=== PATIENT | female | born 1975 | race Caucasian/White ===

== ENCOUNTER 2023-10-29 12:02 | Emergency (ER) | payer OTHER, SELFPAY ==
[2023-10-29 12:04] VITALS: BP 126/75
[2023-10-29 12:34] VITALS: BMI 42.8
[2023-10-29 12:51] LABS: % Basophils 0.5 % (0-2); % Immature Granulocytes 0.4 % (0-0.5); % Lymphocytes 22.7 % (20.5-51.1); % Monocytes 4.4 % (1.7-9.3); Absolute Eosinophils 0.1 10^3/uL (0-0.7); Absolute Lymphocytes 1.9 10^3/uL (1.2-3.4); Absolute Monocytes 0.4 10^3/uL (0.1-0.6); Absolute Neutrophils 5.8 10^3/uL (1.4-6.5); Hematocrit 35.9 % (37.0-47.0); Hemoglobin 12.5 g/dL (12.0-16.0); Mean Corp Hgb Conc. 34.8 g/dL (33.0-37.0); Mean Corpuscular Hgb 30.4 pg (27.0-31.0); Mean Corpuscular Volume 87.3 fL (81.0-99.0); Mean Platelet Volume 9.3 fL (7.4-10.4); Nucleated Red Blood Cells % 0 %; Platelet Count 217 10^3/uL (130-400); Red Blood Cell Count 4.11 10^6/uL (4.20-5.40); Red Cell Dist. Width 12.2 % (11.5-14.5); White Blood Cell Count 8.2 10^3/uL (4.8-10.8)
[2023-10-29 13:09] LABS: ALT (SGPT) 101 U/L (0-35); AST (SGOT) 305 U/L (14-36); Albumin 4.1 g/dl (3.5-5.0); Alkaline Phosphatase 108 U/L (38-126); Blood Urea Nitrogen 13 mg/dl (7-17); Calcium 8.6 mg/dl (8.4-10.2); Carbon Dioxide 24 mmol/L (22-30); Chloride 106 mmol/L (98-107); Estimated Creatinine Clearance > 125 ml/min; Glucose 104 mg/dl (70-99); Lipase 103 U/L (23-300); Sodium 133 mmol/L (135-145); Total Bilirubin 0.9 mg/dl (0.2-1.3); Total Protein 6.9 g/dl (6.3-8.2); eGFR > 60.00
[2023-10-29 13:15] LABS: Troponin I < 0.012 ng/ml
--- NOTE | 2023-10-29 13:18 | ED.GENMED ---
History of Present Illness
General
Chief Complaint: Flank Pain
Source: patient
Exam Limitations: none
Time Seen by Provider: 10/29/23 12:33
Nursing documentation reviewed up to this point in time: agreed with
Travel History
Have you had any contact with someone who has COVID-19?: No
Do you have any symptoms of coronavirus? Fever > 100 degrees, chills, cough, shortness of breath, sore throat, loss of taste or smell, muscle aches, or headache?: No
History of Present Illness
History of Present Illness:
Patient is a 48-year-old female who reports she suddenly developed a feeling of tight severe upper abdominal pain that wraps around her back at around 10:15 AM, shortly after taking a dose of Terbinafine. Patient reports that she just started
terbinafine yesterday for fungal infection of her toenails. She reports the pain lasted about 1 hour and is now gone completely. She reports normal bowel movement this morning. She denies chest pain. She reports the pain felt so tight in her
upper abdomen that it made her feel like she was being squeezed and short of breath. Patient denies any shortness of breath at this time.
Past History
Past History
ED Past Medical History: HTN, Hypercholesterolemia, NIDDM and Other (Obesity surgery)
ED Past Surgical History: Other (Laparoscopic surgery for obesity)
Social History
Tobacco: Non-smoker
Alcohol: None
Drug: None
Personal: Other (Accompanied with parents)
Living: with family
Employment: Employed
Family History
Family History: Other (Noncontributory)
Review of Systems
Review of Systems
Allergies reviewed?: Yes
All Other Systems: ROS reviewed and negative except as documented in HPI and ROS
Constitutional: Reports no symptoms
EENT: Reports no symptoms
Respiratory: Reports trouble breathing (Due to upper abdominal pain)
Cardiac: Reports no symptoms
ABD/GI: Reports abdominal pain
: Reports no symptoms
Musculoskeletal: Reports no symptoms
Skin: Reports no symptoms
Neurological: Reports no symptoms
Endocrine: Reports no symptoms
Hematologic/Lymphatic: Reports no symptoms
Psychiatric: Reports no symptoms
Phy Exam
Physical Exam
Physical Exam:
Physical Exam
General: no apparent distress, not acutely ill. Well and comfortable appearing
Neck: supple. no meningeal signs. normal psoterior pharynx
Heart: s1/s2 regular rate and rhythm, no murmur. equal radial pulses.
Lungs: no acute respiratory distress. clear bilaterally
Abdomen: normal bowel sounds. not tender. no CVAT. Soft and nontender throughout. No pulsatile mass
Neuro: alert and oriented. no focal neurological deficits
Skin: no rash
Psychiatric: well kept. interactive and cooperative
Extremities: no edema. no calf tenderness. negative homans. good distal pulses
Course
Orders/Labs/Results
Orders:
Orders
10/29/23 12:10
Electrocardiogram (*1) Urgent
Reason for Study: Abdominal Pain
10/29/23 12:11
EKG- Treatment ONCE
10/29/23 12:36
IV Insert/Care/Rem.- Treatment PRN
10/29/23 12:43
Comprehensive Metabolic Panel Urgent
Lipase Urgent
Troponin I Urgent
10/29/23 12:44
Complete Blood Count/With Diff Urgent
10/29/23 13:18
US Abdomen Complete/Upper Urgent
Comment:
Reason For Exam: upper ab pain
Abnormal Lab Results
10/29/23 10/29/23
12:43 12:44
RBC 4.11 L 10^6/uL
(4.20-5.40)
Hct 35.9 L %
(37.0-47.0)
Sodium 133 L mmol/L
(135-145)
Creatinine 0.5 L mg/dL
(0.6-1.0)
Glucose 104 H mg/dl
(70-99)
AST 305 H U/L
(14-36)
ALT 101 H U/L
(0-35)
10/29/23 12:44
10/29/23 12:43
Vital Signs
Initial and Last Documented VS:
Initial Vital Signs
Temp Pulse Resp BP Pulse Ox
97.9 F 70 20 126/75 98
10/29/23 12:04 10/29/23 12:04 10/29/23 12:04 10/29/23 12:04 10/29/23 12:04
Last Documented Vital Signs
Temp Pulse Resp BP Pulse Ox
97.9 F 81 20 125/81 97
10/29/23 12:04 10/29/23 15:38 10/29/23 15:38 10/29/23 15:38 10/29/23 15:38
MDM/Problems Addressed
Differential Diagnosis Includes:
Acute cholecystitis, biliary colic, small bowel obstruction hepatitis due to terbinafine
MDM/Problems Addressed:
Patient presents with acute upper abdominal pain that is now gone
Chronic conditions affecting care: Previous abdomnial surgery
*Radiology
Radiology exam reviewed: radiology read reviewed
*Pulse Oximetry
Patient hypoxic: no
*EKG
Interpreted by ED Provider?: Yes
Interpretation: abnormal
Comparison EKG: changes noted
Rate: normal
Rhythm: sinus
[place]: left axis deviation
QRS Pattern: normal QRS and left vent hypertrophy
Ischemia: no ischemia
*[employer] Interpretation
Rate: normal
Interpretation: normal
Rhythm: sinus
*Critical Care Note
Total Time (30-74mins, 75-104mins- exclusive of procedures): Not Applicable
Data Reviewed
Review of Other/Old Records Reveals: Operative Reports (Operative report reviewed from 2018 when patient had a hysterectomy due to uterine polyp)
Source: patient
Update Note
Update Note:
Patient remains pain-free for hours in the emergency department. LFTs may be elevated due to the terbinafine. Patient told to stop taking that medication and to follow-up with her doctor for her liver test to be rechecked in 1 to 2 weeks. In
addition, I did explain to the patient that gallstones were seen on her ultrasound but there is no sign of acute cholecystitis. If patient continues to get pain, she will likely need to follow-up with general surgery
ED Attending Note
-
Portions of this chart may have been created with voice recognition software.� Occasional wrong word or��sound alike� substitutions may have occurred due to the inherent limitations of voice recognition software.
Discharge Plan
Departure
Patient Disposition: Home (Routine Discharge)
Date of Disposition: 10/29/23
Time of Disposition: 16:06
Patient with high blood pressure during this ER visit?: No
Condition: Good
Covid-19: Not Applicable
Discharge Problem:
Gallstones, Abnormal LFTs (liver function tests)
Instructions: Gallstones ED
Prescriptions:
No Action
terbinafine HCl 250 mg Tablet
250 mg PO DAILY
Patient Comments:
10/29/2023, pt. concerned that this med. is causing their flank and abd pain.
Referrals:
Sumi Zabala PA [Family Provider] -
Activity Restrictions/Additional Instructions:
Your liver function tests came back abnormal. This may be due to the new medication you were started on, terbinafine. Please stop taking the Terbinafine immediately and follow-up with your doctor in about 1 to 2 weeks to have your liver test
rechecked. In addition, your ultrasound also showed that you have gallstones. If you continue to have upper abdominal pain, especially with eating, you may eventually have to follow-up with a general surgeon to talk about having your gallbladder
removed.
Interventions
Interventions:
*Risk Screen - Suicide Last Done: 10/29/23 12:34
*General Assessment Last Done: 10/29/23 12:34
*Neglect/Abuse Screening Last Done: 10/29/23 12:34
*ED COVID-19 Vaccine History Last Done: 10/29/23 12:34
ED-Dhbeax-Wnccnpplja Assessment Last Done: 10/29/23 12:34
ED-Female Genitourinary Assessment Last Done: 10/29/23 12:34
Discharge Date and Time
Print Language: [id number]
[2023-10-29 15:38] VITALS: BP 125/81
== END 2023-10-29 16:18 | disposition home or self-care (01) ==
LOC: EMR 12:02
PROVIDERS: EMERGENCY PHYSICIAN Emergency Medicine; FAMILY PHYSICIAN Physician Assistant Medical
DX: K80.62 Calculus of gallbladder and bile duct with acute cholecystitis without obstruction (principal); R79.89 Other specified abnormal findings of blood chemistry; I10 Essential (primary) hypertension; E78.00 Pure hypercholesterolemia, unspecified; E11.9 Type 2 diabetes mellitus without complications
CPT/HCPCS: 99284; 76700; 80053; 83690; 84484; 85025; 93005

== ENCOUNTER → 2024-02-14 15:13 | Outpatient (REF) | payer OTHER, SELFPAY | LOC: HWRAD 15:13 | PROVIDERS: ATTENDING PHYSICIAN Surgery; FAMILY PHYSICIAN Physician Assistant Medical | DX: K62.89 Other specified diseases of anus and rectum (principal) | CPT/HCPCS: 72193; Q9967 ==